=== PATIENT | female | born 1950 | race Caucasian/White ===

== ENCOUNTER 2016-09-07 14:45 | Inpatient (IN) | payer SELFPAY ==
[~2016-09-07] VITALS: Ht 162.6 cm; Wt 91.5 kg
[2016-09-07] MEDS ORDERED: SODIUM CHLORIDE 0.9% 1,000ML IVBOLUS ONE (16:00)
[2016-09-07] MEDS ORDERED: ACETAMINOPHEN 325 MG TABLET PO ONE (16:00)
[2016-09-07] MEDS ORDERED: KETOROLAC 30 MG/1 ML IVPush ONE (16:00)
[2016-09-07] MEDS ORDERED: ALBUTEROL SULFATE 2.5 MG/3 ML NPPB ONE (16:00)
[2016-09-07] MEDS ORDERED: SODIUM CHLORIDE FLUSH 10ML SYR IVF ONE (16:00)
[2016-09-07] MEDS ORDERED: LEVOFLOXACIN/PMX 750MG/150ML 150 ML IVPB ONE (16:30)
[2016-09-07 16:31] LABS: HEMOGLOBIN 11.4 g/dL (11.7-16.4)
[2016-09-07] MEDS ORDERED: HYDR1TAB12 PO (16:34)
[2016-09-07] MEDS ORDERED: THYR130T2 PO (16:34)
[2016-09-07] MEDS ORDERED: ACETAMINOPHEN 325 MG TABLET ONE (16:38)
[2016-09-07] MEDS ORDERED: LEVOFLOXACIN/PMX 750MG/150ML 150 ML ONE (16:38)
[2016-09-07] MEDS ORDERED: KETOROLAC 30 MG/1 ML ONE (16:38)
[2016-09-07 16:45] LABS: ASPARTATE AMINO TRANSFERASE 39 U/L (15-37); BLOOD UREA NITROGEN 12 mg/dL (7-18)
[2016-09-07 16:47] LABS: DIFF TOTAL CELLS COUNTED 100 CELL DIFF
[2016-09-07 16:49] LABS: VERIFY COUNTS? YES
[2016-09-07 16:53] LABS: IS PT STATUS REG ER OR PRE ER? YES
[2016-09-07] MEDS ORDERED: ALBUTEROL/IPRATROPIUM 2.5MG/0.5MG, 3 ML ONE (16:58)
[2016-09-07] MEDS ORDERED: ALBUTEROL SULFATE 2.5 MG/3 ML ONE (16:59)
[2016-09-07] MEDS ORDERED: SODIUM CHLORIDE FLUSH 10ML SYR IVF PRN (17:30)
[2016-09-07] MEDS ORDERED: POLYETHYLENE GLYCOL 17 GM PACKET PO PRN (18:30)
[2016-09-07] MEDS ORDERED: BISACODYL 10 MG SUPP PR PRN (18:30)
[2016-09-07] MEDS ORDERED: ACETAMINOPHEN 325 MG TABLET PO PRN (18:30)
[2016-09-07] MEDS ORDERED: DOCUSATE 100 MG CAPSULE PO PRN (18:30)
[2016-09-07 19:30] VITALS: BP 111/62
[2016-09-07 19:37] LABS: IS PT STATUS REG ER OR PRE ER? NO
[2016-09-07] MEDS: SODIUM CHLORIDE 0.9% 1,000 ML IV SCH (20:40)
[2016-09-07] MEDS: CEFTRIAXONE PMX 1GM/50ML 50 ML IV SCH (20:40)
[2016-09-07] MEDS: HEPARIN 5,000 UNITS/ML, 1ML SQ SCH (20:41)
[2016-09-07 21:25] VITALS: BP 176/75
[2016-09-07] MEDS: AZITHROMYCIN 500 MG in SODIUM CHLORIDE 0.9% 250 ML IV SCH (21:45)
[2016-09-08 01:08] LABS: IS PT STATUS REG ER OR PRE ER? NO
[2016-09-08 02:00] VITALS: BP 120/74
[2016-09-08 05:05] LABS: HEMOGLOBIN 10.4 g/dL (11.7-16.4)
[2016-09-08] MEDS: HEPARIN 5,000 UNITS/ML, 1ML SQ SCH ×3 (05:14→22:19)
[2016-09-08 05:31] LABS: ASPARTATE AMINO TRANSFERASE 30 U/L (15-37); BLOOD UREA NITROGEN 22 mg/dL (7-18)
[2016-09-08 07:05] VITALS: BP 99/56
[2016-09-08] MEDS: SODIUM CHLORIDE 0.9% 1,000 ML IV SCH (08:38)
[2016-09-08] MEDS: NATURE THROI PO SCH (09:00)
[2016-09-08 13:10] VITALS: BP 110/64
[2016-09-08 19:55] VITALS: BP 118/68
[2016-09-08] MEDS: CEFTRIAXONE PMX 1GM/50ML 50 ML IV SCH (20:37)
[2016-09-08] MEDS: AZITHROMYCIN 500 MG in SODIUM CHLORIDE 0.9% 250 ML IV SCH (22:19)
[2016-09-09 02:26] VITALS: BP 122/73
[2016-09-09] MEDS: HEPARIN 5,000 UNITS/ML, 1ML SQ SCH ×3 (05:13→21:30)
[2016-09-09 06:06] LABS: HEMOGLOBIN 10.3 g/dL (11.7-16.4)
[2016-09-09 06:20] LABS: BLOOD UREA NITROGEN 20 mg/dL (7-18)
[2016-09-09 06:55] VITALS: BP 117/67
[2016-09-09] MEDS: NATURE THROI PO SCH (09:01)
[2016-09-09 13:05] VITALS: BP 133/65
[2016-09-09 20:18] VITALS: BP_SYST 129; BP_SYST 167; BP_DIAS 73; BP_DIAS 83
[2016-09-09] MEDS: CEFTRIAXONE PMX 1GM/50ML 50 ML IV SCH (20:23)
[2016-09-09] MEDS: AZITHROMYCIN 500 MG in SODIUM CHLORIDE 0.9% 250 ML IV SCH (22:14)
[2016-09-09 23:31] VITALS: BP 130/75
[2016-09-10 02:21] VITALS: BP 127/70
[2016-09-10] MEDS ORDERED: GUAIFENESIN/DM 200-20MG, 10ML UDC PO PRN (03:00)
[2016-09-10] MEDS ORDERED: HYDROcodone/APAP 5/325 TABLET PO PRN (03:00)
[2016-09-10] MEDS: HEPARIN 5,000 UNITS/ML, 1ML SQ SCH (04:15)
[2016-09-10 05:51] LABS: BLOOD UREA NITROGEN 18 mg/dL (7-18)
[2016-09-10 05:53] LABS: HEMOGLOBIN 10.5 g/dL (11.7-16.4)
[2016-09-10 06:50] VITALS: BP 128/75
[2016-09-10] MEDS: NATURE THROI PO SCH (08:27)
[2016-09-10] MEDS ORDERED: KETOROLAC 30 MG/1 ML IVPush ONE (08:30)
[2016-09-10] MEDS ORDERED: CEFD300C2 PO (08:31)
[2016-09-10] MEDS ORDERED: GUAI12003 PO (08:31)
[2016-09-10] MEDS ORDERED: NATURE THROI PO (08:31)
[2016-09-10] MEDS ORDERED: PRED10TA PO (08:31)
[2016-09-10] MEDS ORDERED: TRAM-28 PO (08:31)
[2016-09-10] MEDS ORDERED: AZIT500T4 PO (08:31)
[2016-09-10] MEDS ORDERED: FAMO20TA37 PO (08:31)
[2016-09-10] MEDS ORDERED: DICL100G8 TP (08:31)
[2016-09-10] MEDS ORDERED: LACT1CAP24 PO (08:31)
== END 2016-09-10 12:30 | disposition home or self-care (01) | DRG 871 ==
LOC: ED 18:04 → EDIP 18:08 → 4EST 18:49
PROVIDERS: ADMIT Hospitalist; ATTEND Hospitalist
PROC: 0T9B70Z Drainage of Bladder with Drainage Device, Via Natural or Artificial Opening (ICD-10-PCS; principal; 2016-09-08)
DX: A41.9 Sepsis, unspecified organism (principal); J96.01 Acute respiratory failure with hypoxia; N17.0 Acute kidney failure with tubular necrosis; J18.9 Pneumonia, unspecified organism; E87.1 Hypo-osmolality and hyponatremia; N39.0 Urinary tract infection, site not specified; E03.9 Hypothyroidism, unspecified; E74.39 Other disorders of intestinal carbohydrate absorption; E78.5 Hyperlipidemia, unspecified; F12.90 Cannabis use, unspecified, uncomplicated; R65.20 Severe sepsis without septic shock; R73.9 Hyperglycemia, unspecified; I35.8 Other nonrheumatic aortic valve disorders; Z98.890 Other specified postprocedural states; Z82.3 Family history of stroke; Z82.49 Family history of ischemic heart disease and other diseases of the circulatory system; Z79.899 Other long term (current) drug therapy
CPT/HCPCS: 36415; 71010; 80048; 80053; 80061; 81001; 83036; 83605; 83735; 83880; 84100; 84145; 84439; 84443; 84484; 85025; 87040; 87086; 93005; 93306; 94640; 96374; J0456; J0696; J1644; J1885; J1956; J7613; J7030; J7050; J7512